=== PATIENT | male | born 1945 | race Caucasian/White ===

== ENCOUNTER → 2016-07-05 | Outpatient (CLI) | payer MEDICARE, OTHER | LOC: GMAB 14:22 | PROVIDERS: ATTEND Family Medicine | DX: R19.7 Diarrhea, unspecified (principal) ==

== ENCOUNTER → 2016-07-09 | Outpatient (CLI) | payer MEDICARE, OTHER | END | disposition home or self-care (01) | LOC: LAB.O 07-05 12:20 | PROVIDERS: ATTEND Family Medicine | DX: R30.0 Dysuria (principal) ==

== ENCOUNTER → 2016-11-21 | Outpatient (CLI) | payer MEDICARE, OTHER | END | disposition home or self-care (01) | LOC: GMAB 10:21 | PROVIDERS: ATTEND Family Medicine | DX: Z12.5 Encounter for screening for malignant neoplasm of prostate (principal); R53.82 Chronic fatigue, unspecified; E78.4 Other hyperlipidemia; E78.5 Hyperlipidemia, unspecified | CPT/HCPCS: 84403; 84443; G0103 ==

== ENCOUNTER 2018-06-28 18:28 | Emergency (ER) | payer MEDICARE, OTHER ==
[2018-06-28 18:51] VITALS: TEMP 98; O2SAT 96
--- NOTE | 2018-06-28 19:06 | ED.PDOC ---
History of Present Illness - General Chief Complaint: Laceration Stated Complaint: hematoma to left forearm Time Seen by Provider: 06/28/18 18:51 Source: patient Exam Limitations: no limitations - History of Present Illness Initial Comments: Myrna Price 72 y/o male ccame to ER with wound left forearm stating stepped on a basket ball slipped and left arm hit a rock wall.Danies any other injuries elsewhere.Then noted injury started to swell up on his left foerarm. Timing/Duration: just prior to arrival Severity: moderate Location: extremities - left forearm Improving Factors: other - pressure dressing Worsening Factors: rest Associated Symptoms: denies symptoms Allergies/Adverse Reactions: Allergies NO KNOWN ALLERGY Allergy (Verified 05/29/12 10:58) Home Medications: Ambulatory Orders Fluticasone Propionate Inhaler [(None)] 1 puff INH PRN 05/29/12 Multiple Vitamins W/ Minerals [Centrum Silver] 1 tab PO AM 05/29/12 Cephalexin 1,000 mg PO BID 5 Days #20 cap 06/28/18 Escitalopram [Lexapro] 10 mg PO BEDTIME 06/28/18 LORazepam [Ativan] 0.5 mg PO PRN 06/28/18 Pantoprazole Sodium 40 mg PO DAILY 06/28/18 Review of Systems - Review of Systems Constitutional: States: no symptoms reported EENTM: States: no symptoms reported Respiratory: States: no symptoms reported Musculoskeletal: States: no symptoms reported Skin: States: see HPI Neurological: States: no symptoms reported All other Systems: Reviewed and Negative, No Change from Baseline Past Medical History (General) - Patient Medical History Hx Stroke: No Hx Congestive Heart Failure: No Hx Diabetes: No Hx Gastroesophageal Reflux: Yes - Vaccination History Hx Tetanus, Diphtheria Vaccination: - unknown Hx Influenza Vaccination: Yes Hx Pneumococcal Vaccination: Yes - Social History Hx Tobacco Use: Yes Family Medical History - Family History Father Family History: Unknown Living Status: Unknown Physical Exam - Physical Exam General Appearance: Alert, Comfortable, No apparent distress Eyes, Ears, Nose, Throat Exam: normal ENT inspection Neck: supple, normal inspection Cardiovascular/Chest: normal peripheral pulses, regular rate, rhythm, no murmur Respiratory: chest non-tender, lungs clear, normal breath sounds Gastrointestinal/Abdominal: normal bowel sounds, non tender, soft Back Exam: normal inspection Extremity: no pedal edema, no calf tenderness Neurologic: alert, oriented x 3 Skin Exam: warm/dry Skin Problem Location: other - hematoma left mid forearm Skin Character: other - pinpoint laceration left mid forearm with hematoma Progress - Progress Progress: 06/28/18 19:08 Vital Signs - 8 hr 06/28/18 18:47 Temperature 98 F Pulse Rate [ 80 Right Brachial] Respiratory 16 Rate Blood Pressure 154/106 [Right Arm] O2 Sat by Pulse 96 Oximetry Departure - Departure Clinical Impression: Fall against object, Skin laceration Forearm contusion Qualifiers: Encounter type: initial encounter Laterality: left Qualified Code(s): S50.12XA - Contusion of left forearm, initial encounter Time of Disposition: 19:12 Disposition: Discharge to Home or Self Care Condition: Fair Departure Forms: ED Discharge - Pt. Copy, Patient Portal Self Enrollment Referrals: Arsenio Flor MD [Primary Care Provider] - 1-2 Weeks Prescriptions: Cephalexin 1,000 mg PO BID 5 Days #20 cap Home Medications: Ambulatory Orders Fluticasone Propionate Inhaler [(None)] 1 puff INH PRN 05/29/12 Multiple Vitamins W/ Minerals [Centrum Silver] 1 tab PO AM 05/29/12 Cephalexin 1,000 mg PO BID 5 Days #20 cap 06/28/18 Escitalopram [Lexapro] 10 mg PO BEDTIME 06/28/18 LORazepam [Ativan] 0.5 mg PO PRN 06/28/18 Pantoprazole Sodium 40 mg PO DAILY 06/28/18 Additional Instructions: Return to ER as needed Addendum entered and electronically signed by ROLLY ELLIOTT MD 06/28/18 20:00: Departure - Departure Clinical Impression: Fall against object, Skin laceration Forearm contusion Qualifiers: Encounter type: initial encounter Laterality: left Qualified Code(s): S50.12XA - Contusion of left forearm, initial encounter Disposition: Discharge to Home or Self Care Condition: Fair Departure Forms: ED Discharge - Pt. Copy, Patient Portal Self Enrollment Instructions: DI for Laceration Repair Referrals: Arsenio Flor MD [Primary Care Provider] - 1-2 Weeks Prescriptions: Cephalexin 1,000 mg PO BID 5 Days #20 cap Home Medications: Ambulatory Orders Fluticasone Propionate Inhaler [(None)] 1 puff INH PRN 05/29/12 Multiple Vitamins W/ Minerals [Centrum Silver] 1 tab PO AM 05/29/12 Cephalexin 1,000 mg PO BID 5 Days #20 cap 06/28/18 Escitalopram [Lexapro] 10 mg PO BEDTIME 06/28/18 LORazepam [Ativan] 0.5 mg PO PRN 06/28/18 Pantoprazole Sodium 40 mg PO DAILY 06/28/18 Additional Instructions: Return to ER as needed Comments: 1959: I assigned myself to this patient in error. He was previously discharged.
[2018-06-28] MEDS ORDERED: CEPHALEXIN MONOHYDRATE 500 MG CAP PO ONE (19:09)
[2018-06-28] MEDS ORDERED: TETANUS,DIPHTHERIA,PERTUSSIS 1 EA SYG IM ONE (19:09)
[2018-06-28] MEDS ORDERED: HYDROcodone 7.5MG/APAP 325MG 1 EA TAB PO ONE (19:25)
--- NOTE | 2018-06-28 19:27 | RAD ---
EXAM: Forearm,Left CLINICAL INDICATION: Left forearm pain COMPARISON: There is no previous study for comparison. FINDINGS: Two views of the left forearm reveal no evidence of any fracture. The osseous structures appear intact and unremarkable. There are no radiopaque foreign bodies. IMPRESSION: Normal left forearm radiographs. Electronically signed by: Harjinder Johnson MD 06/28/2018 7:24 PM CDT
[2018-06-28 20:07] VITALS: BP 151/100
== END 2018-06-28 20:07 | disposition home or self-care (01) ==
LOC: ER 18:28
DX: S50.12XA Contusion of left forearm, initial encounter (principal); K21.9 Gastro-esophageal reflux disease without esophagitis; Z23 Encounter for immunization; Z87.891 Personal history of nicotine dependence; Z79.899 Other long term (current) drug therapy; W01.198A Fall on same level from slipping, tripping and stumbling with subsequent striking against other object, initial encounter; Y92.9 Unspecified place or not applicable

== ENCOUNTER → 2019-01-06 | Outpatient (CLI) | payer MEDICARE, OTHER | LOC: GMAJ 10:03 | PROVIDERS: ATTEND Family Medicine | DX: R06.02 Shortness of breath (principal) ==

== ENCOUNTER → 2019-08-21 | Outpatient (CLI) | payer MEDICARE, OTHER ==
--- NOTE | 2019-08-21 13:29 | CT ---
TECHNIQUE: Spiral CT examination of the paranasal sinuses. Multiplanar reformats provided. This exam was performed according to our departmental dose-optimization program, which includes automated exposure control, adjustment of the mA and/or kV according to patient size and/or use of iterative reconstruction technique. CLINICAL HISTORY PROVIDED: CHRONIC FRONTAL SINUSITIS COMPARISON: None available. FINDINGS: Evaluation degraded by motion. Right: Maxillary: Trace mucosal thickening. Ethmoid: Unremarkable. Sphenoid: Unremarkable. Frontal: Unremarkable. Infundibulum: Unremarkable. Middle Meatus: Unremarkable. Left: Maxillary: Trace mucosal thickening. Ethmoid: Minimal mucosal thickening anteriorly. Sphenoid: Unremarkable. Frontal: Trace mucosal thickening inferiorly. Infundibulum: Narrowed but patent. Middle Meatus: Unremarkable. Nasal Passage: Septal Deviation: 4 mm leftward nasal septal deviation. Septal Spur: None of significance. Mucosa: Unremarkable. Rabia Bullosa: Not present. Notable Anatomic Findings: Hypoplastic right A1 segment. Visible Brain and Orbits: Unremarkable. Incidental Findings: None of significance. IMPRESSION: Trace scattered mucosal thickening in the paranasal sinuses. No CT evidence of acute sinusitis. Electronically signed by: Hipolito Desai MD 08/21/2019 1:27 PM CDT
== END ==
LOC: CT 11:30
PROVIDERS: ATTEND Family Medicine
DX: Z01.812 Encounter for preprocedural laboratory examination (principal); J32.1 Chronic frontal sinusitis

== ENCOUNTER → 2020-02-12 | Outpatient (CLI) | payer MEDICARE, OTHER ==
--- NOTE | 2020-02-12 08:50 | RAD ---
EXAM DESCRIPTION: Elbow,Right 3 Views CLINICAL HISTORY: PAIN COMPARISON: None Available. TECHNIQUE: AP, Lateral, and Oblique FINDINGS: Three-view right elbow shows no fracture or dislocation. Soft tissue swelling is seen over the dorsal aspect of the elbow. Mild spurring at the anterior elbow joint. No displacement of distal humeral fat pads. There is no bone lesion. Degenerative narrowing of the radiocapitellar joint. IMPRESSION: Negative for fracture or dislocation. Electronically signed by: Jovan Gonzales MD 02/12/2020 8:48 AM CDT
--- NOTE | 2020-02-12 08:51 | RAD ---
EXAM DESCRIPTION: Wrist,Right 3 Views CLINICAL HISTORY: 74 years, Male, PAIN COMPARISON: None FINDINGS: Right wrist 3 x-ray views is negative for fracture or dislocation. Carpal relationships are well-maintained. No fracture of the distal radius or ulna. Normal metacarpals. Degenerative narrowing of the radiocarpal joint. Degenerative narrowing of the scapholunate joint with tiny cyst in the lunate. Larger cyst in the distal ulna. Calcification of the triangular fibrocartilage. 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 Arthritic narrowing of the first through third metacarpal phalangeal joints. IMPRESSION: Arthritic changes as described. Electronically signed by: Jovan Gonzales MD 02/12/2020 8:49 AM CDT
== END ==
LOC: RAD 08:03
PROVIDERS: ATTEND Orthopaedic Surgery
DX: M71.521 Other bursitis, not elsewhere classified, right elbow (principal); M19.031 Primary osteoarthritis, right wrist

== ENCOUNTER → 2020-02-19 | Outpatient (CLI) | payer MEDICARE, OTHER | LOC: LAB.O 10:45 | PROVIDERS: ATTEND Orthopaedic Surgery | DX: M71.521 Other bursitis, not elsewhere classified, right elbow (principal) ==

== ENCOUNTER → 2020-03-30 | Outpatient (CLI) | payer MEDICARE, OTHER | LOC: GMAJ 14:18 | PROVIDERS: ATTEND Family Medicine | DX: Z12.5 Encounter for screening for malignant neoplasm of prostate (principal) ==